=== PATIENT | male | born 1935 | race Caucasian/White ===

== ENCOUNTER 2019-04-18 11:21 | Emergency (ER) | payer MEDICARE ==
[2019-04-18 11:43] VITALS: TEMP 97.9
--- NOTE | 2019-04-18 12:39 | ED ---
General Adult HPI - General Chief complaint: Urogenital Stated complaint: catheter plugged Time Seen by Provider: 04/18/19 12:23 Source: patient, RN notes reviewed Mode of arrival: ambulatory Limitations: no limitations - History of Present Illness Initial comments: 83-year-old male with an indwelling catheter, prostate cancer presents to the emergency department for a chief of "clogged Benoit catheter". Patient states he woke up today and noticed his Benoit catheter was likely clogged. States that he tries to usually flush this himself but was unable to. States he brought the other part of his catheter so it could be reinserted. Denies any abdominal pain. Denies fevers or chills.Patient has no other complaints at this time including shortness of breath, chest pain, abdominal pain, nausea or vomiting, headache, or visual changes. - Related Data Home Medications Medication Instructions Recorded Confirmed Ascorbic Acid [Vitamin C] 1,000 mg PO HS 04/18/19 04/18/19 Aspirin EC [Ecotrin Low Dose] 81 mg PO DAILY 04/18/19 04/18/19 Cyanocobalamin (Vitamin B-12) 1,000 mcg PO HS 04/18/19 04/18/19 [Vitamin B-12] Ferrous Sulfate [Feosol] 325 mg PO HS 04/18/19 04/18/19 Lisinopril [Zestril] 20 mg PO DAILY PRN 04/18/19 04/18/19 Previous Rx's Medication Instructions Recorded Cephalexin [Keflex] 500 mg PO Q6HR 10 Days #40 cap 04/18/19 Allergies Allergy/AdvReac Type Severity Reaction Status Date / Time No Known Allergies Allergy Verified 04/18/19 12:40 Review of Systems ROS Statement: Those systems with pertinent positive or pertinent negative responses have been documented in the HPI. ROS Other: All systems not noted in ROS Statement are negative. Past Medical History Past Medical History: Cancer Additional Past Medical History / Comment(s): indwelling cath prostate ca History of Any Multi-Drug Resistant Organisms: None Reported Past Surgical History: Hernia Repair Past Psychological History: No Psychological Hx Reported Smoking Status: Former smoker Past Alcohol Use History: Occasional Past Drug Use History: None Reported General Exam Limitations: no limitations General appearance: alert, in no apparent distress Head exam: Present: atraumatic, normocephalic, normal inspection Eye exam: Present: normal appearance, PERRL, EOMI. Absent: scleral icterus, conjunctival injection, periorbital swelling ENT exam: Present: normal exam, mucous membranes moist Neck exam: Present: normal inspection, full ROM. Absent: tenderness, meningismus, lymphadenopathy Respiratory exam: Present: normal lung sounds bilaterally. Absent: respiratory distress, wheezes, rales, rhonchi, stridor Cardiovascular Exam: Present: regular rate, normal rhythm, normal heart sounds. Absent: systolic murmur, diastolic murmur, rubs, gallop, clicks GI/Abdominal exam: Present: soft, normal bowel sounds. Absent: distended, tenderness (no tenderness noted in the abdomen), guarding, rebound, rigid Neurological exam: Present: alert Psychiatric exam: Present: normal affect, normal mood Course Vital Signs 04/18/19 11:39 Temperature 97.9 F Pulse Rate 63 Respiratory 18 Rate Blood Pressure 131/73 O2 Sat by Pulse 96 Oximetry Medical Decision Making - Medical Decision Making 83-year-old male with an indwelling catheter due to history of prostate cancer presents to the emergency department for a chief complaint of clogged Benoit catheter. Patient states he woke up today and noticed his Benoit catheter was clogged. States that he usually tries to flex his himself but was unable to. On presentation the nurse did attempt to flush this but was unable to flush the saline. Therefore I did remove his suprapubic catheter. Patient brought his own catheter. It was inserted using sterile technique. 5 mL were used to inflate the balloon. Abdomen is soft. No pain. No CVA tenderness. Urinalysis however did show evidence of infection. This was cultured. Patient was started on Keflex. Recommended following up with primary care returning if he starts to develop any fevers or abdominal pain. - Lab Data Lab Results 04/18/19 Range/Units 14:20 Urine Color Yellow Urine Appearance Cloudy (Clear) Urine pH 6.0 (5.0-8.0) Ur Specific Leon 1.016 (1.001-1.035) Urine Protein 2+ H (Negative) Urine Glucose (UA) Negative (Negative) Urine Ketones Negative (Negative) Urine Blood Moderate H (Negative) Urine Nitrite Positive (Negative) Urine Bilirubin Negative (Negative) Urine Urobilinogen <2.0 (<2.0) mg/dL Ur Leukocyte Esterase Large H (Negative) Urine RBC 121 H (0-5) /hpf Urine WBC 141 H (0-5) /hpf Urine WBC Clumps Moderate H (None) /hpf Urine Mucus Rare H (None) /hpf Disposition Clinical Impression: Urinary tract infection Disposition: HOME SELF-CARE Condition: Good Instructions (If sedation given, give patient instructions): Urinary Tract Infection in Men (ED) Additional Instructions: Please take antibiotic as directed. Pick this up at [facility]. Please follow up with primary care in 1-2 days. Return here to the emergency department if you have any worsening symptoms such as abdominal pain or fevers. Prescriptions: Cephalexin [Keflex] 500 mg PO Q6HR 10 Days #40 cap Is patient prescribed a controlled substance at d/c from ED?: No Referrals: Nonstaff,Physician [Primary Care Provider] - 1-2 days Time of Disposition: 15:32
[2019-04-18 14:44] LABS: Appearance,Urine Cloudy (Clear); Bilirubin,Urine Negative (Negative); Blood,Urine Moderate (Negative); Color,Urine Yellow; Glucose,Urine (UA) Negative (Negative); Ketones,Urine Negative (Negative); Leukocyte Esterase,Urine Large (Negative); Mucus,Urine Rare /hpf; Nitrite,Urine Positive (Negative); Protein,Urine 2+ (Negative); RBC,Urine 121 /hpf (0-5); Specific Gravity,Urine 1.016 (1.001-1.035); Urobilinogen,Urine <2.0 mg/dL (<2.0); WBC,Urine 141 /hpf (0-5)
[2019-04-18] MEDS ORDERED: CEPHALEXIN 500MG STARTER PACK 4 CAP BTL PO STA (15:34)
[2019-04-18 15:54] VITALS: BP 136/74; PULSE 75; RESP 16
== END 2019-04-18 15:54 | disposition home or self-care (01) ==
LOC: EC 11:21
DX: N39.0 Urinary tract infection, site not specified (principal); Z87.891 Personal history of nicotine dependence; Z85.46 Personal history of malignant neoplasm of prostate; Z79.82 Long term (current) use of aspirin
CPT/HCPCS: 51702; 81001; 87077; 87086; 87186; 99283